=== PATIENT | female | born 1965 | race Caucasian/White ===

== ENCOUNTER 2019-09-09 09:57 | Emergency (ER) | payer BC ==
[~2019-09-09] VITALS: Ht 152.4 cm; Wt 77.1 kg
[2019-09-09 10:15] VITALS: BP_SYST 165
--- NOTE | 2019-09-09 10:15 | NUR ---
Patient to ER bed 5 to gown for evaluation. Side rails up. Assumed care.
--- NOTE | 2019-09-09 10:20 | NUR ---
Patient arrived via POV, AAOx4, and ambulatory with steady gait. Patient c/c of right shoulder pain. Patient states she has had ongoing pain for several months; however, beginning Wednesday, she began having difficulty raising her hand upward, and began to feel a lump in the right bicep. Patient has been taking OTC Advil wit limited relief. Patient states not history of arthritis. 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 Will continue to follow up and monitor.
--- NOTE | 2019-09-09 10:22 | NUR ---
ER at bedside examining patient.
--- NOTE | 2019-09-09 10:45 | NUR ---
XR at beside for exam.
[2019-09-09] MEDS ORDERED: IBUPROFEN 800 MG TABLET PO ONE (11:30)
[2019-09-09] MEDS ORDERED: methylPREDNISolone SOD SUCC/PF 62.5 MG/ML VIAL IM ONE (12:15)
--- NOTE | 2019-09-09 13:33 | NUR ---
ULTRA SOUND AT BEDSIDE.
[2019-09-09 14:46] VITALS: BP_SYST 150
--- NOTE | 2019-09-09 14:46 | NUR ---
Patient given written and verbal discharge instructions and verbalizes understanding. ER MD discussed with patient the results and treatment provided. Patient in stable condition. ID arm band removed. Rx of [place] and Motrin given. Patient educated on pain management and to follow up with PMD. Pain Scale 3/10. Opportunity for questions provided and answered. Medication side effect fact sheet provided.
== END 2019-09-09 14:46 | disposition home or self-care (01) ==
LOC: SED 09:57
DX: M25.511 Pain in right shoulder (principal)
CPT/HCPCS: 73030; 93971; 96372; 99284; J2930